=== PATIENT | female | born 1965 | race Hispanic/Latino ===

== ENCOUNTER 2023-12-02 18:15 | Emergency (ER) | payer OTHER ==
[~2023-12-02] VITALS: Ht 152.4 cm; Wt 77.1 kg
[2023-12-02 19:41] LABS: BASOPHILS % 0.1 % (0.0-1.0); HEMOGLOBIN 7.2 g/dL (12.0-16.0); LYMPHOCYTES # (AUTO) 0.5 (1.0-3.2); LYMPHOCYTES % 3.4 % (18.0-39.1); MEAN CORPUSCULAR HEMOGLOBIN 24.2 pg (28-32); MEAN CORPUSCULAR HGB CONC 33.2 g/dL (31-35); MEAN CORPUSCULAR VOLUME 73.1 fL (81-99); MONOCYTES # (AUTO) 0.8 (0.2-0.8); MONOCYTES % 5.4 % (4.4-11.3); NEUTROPHILS # (AUTO) 13.2 (2.1-6.9); NEUTROPHILS % 90.4 % (38.7-80.0); PLATELET COUNT 69 x10e3/uL (140-360); RED BLOOD COUNT 2.97 x10e6/uL (3.6-5.1); RED CELL DISTRIBUTION WIDTH 16.7 % (11.7-14.4); WHITE BLOOD COUNT 14.61 x10e3/uL (4.8-10.8)
[2023-12-02 19:46] LABS: HEMATOCRIT 21.7 % (34.2-44.1)
[2023-12-02 19:48] LABS: INR 2.19; PROTHROMBIN TIME 25.5 seconds (11.9-14.5)
[2023-12-02 19:49] LABS: PARTIAL THROMBOPLASTIN TIME 40.8 seconds (23.8-35.5)
[2023-12-02 19:57] LABS: ALBUMIN 2.3 g/dL (3.5-5.0); ALBUMIN/GLOBULIN RATIO 0.5 (0.8-2.0); ANION GAP 10.7 mmol/L (8-16); BILIRUBIN,TOTAL 5.6 mg/dL (0.2-1.2); CALCIUM 8.3 mg/dL (8.4-10.2); CREATININE, SERUM 0.9 mg/dL (0.57-1.11); POTASSIUM 4.7 mmol/L (3.5-5.1); TOTAL PROTEIN 7.1 g/dL (6.5-8.1)
[2023-12-02] MEDS ORDERED: DEXTROSE 50% SYRINGE 50 ML IV ONE (20:07)
[2023-12-02] MEDS: DEXTROSE 50% SYRINGE 50 ML IV STA ×2 (20:08→21:52)
[2023-12-02] MEDS ORDERED: IOPAMIDOL 370 MG/ML 100 ML INFUS..BTL INJ ONE (20:08)
[2023-12-02 20:35] LABS: BILIRUBIN,URINE NEGATIVE (NEGATIVE); CLARITY,URINE SL CLOUDY (CLEAR); COLOR,URINE YELLOW (YELLOW); GLUCOSE, URINE NEGATIVE (NEGATIVE); KETONES,URINE NEGATIVE (NEGATIVE); LEUKOCYTE ESTERASE ,URINE TRACE (NEGATIVE); NITRITE,URINE POSITIVE (NEGATIVE); PH,URINE 6 (5 - 7); PROTEIN,URINE DIPSTICK NEGATIVE (NEGATIVE); URINE UROBILINOGEN 1 mg/dL (0.2 - 1)
[2023-12-02 20:51] LABS: BACTERIA,URINE MANY /HPF; EPITHELIAL CELLS,URINE FEW /LPF; TRANSITIONAL EPI CELLS,URINE MODERATE; WBC,URINE (MAN) 0-5 /HPF (0-5)
[2023-12-02] MEDS: DEXTROSE 5%/0.45% SOD CHL 1,000 ML IV ONE (21:51)
[2023-12-03] MEDS: DEXTROSE 50% SYRINGE 50 ML IV STA ×2 (00:23→01:48)
[2023-12-03] MEDS: DEXTROSE 10% 1,000 ML IV ONE (01:19)
[2023-12-03 02:13] VITALS: PULSE 107; RESP 26; TEMP 98.4; O2SAT 99
== END 2023-12-03 02:35 | disposition other institution (70) ==
LOC: ER 18:18
DX: D64.9 Anemia, unspecified (principal); E87.1 Hypo-osmolality and hyponatremia; K82.9 Disease of gallbladder, unspecified; E11.649 Type 2 diabetes mellitus with hypoglycemia without coma; K74.60 Unspecified cirrhosis of liver; N20.0 Calculus of kidney; K57.90 Diverticulosis of intestine, part unspecified, without perforation or abscess without bleeding; D72.829 Elevated white blood cell count, unspecified
CPT/HCPCS: 36415; 74177; 80053; 81001; 82140; 82948; 83690; 85025; 85610; 85730; 87040; 99284; J2543; J7799 ×2; Q9967

== ENCOUNTER 2024-06-25 09:51 | Inpatient (IN) | payer OTHER ==
[~2024-06-25] VITALS: Ht 152.4 cm; Wt 77.1 kg
[2024-06-25 09:51] VITALS: TEMP 97.4
[2024-06-25 10:35] LABS: BASOPHILS % 0.6 % (0.0-1.0); EOSINOPHILS # (AUTO) 0.2 (0.0-0.4); EOSINOPHILS % 4.7 % (0.0-6.0); HEMATOCRIT 25.4 % (34.2-44.1); HEMOGLOBIN 8.4 g/dL (12.0-16.0); LYMPHOCYTES # (AUTO) 0.5 (1.0-3.2); LYMPHOCYTES % 9.7 % (18.0-39.1); MEAN CORPUSCULAR HEMOGLOBIN 23.5 pg (28-32); MEAN CORPUSCULAR HGB CONC 33.1 g/dL (31-35); MEAN CORPUSCULAR VOLUME 70.9 fL (81-99); MONOCYTES # (AUTO) 0.4 (0.2-0.8); MONOCYTES % 7.7 % (4.4-11.3); NEUTROPHILS # (AUTO) 3.6 (2.1-6.9); NEUTROPHILS % 77.1 % (38.7-80.0); PLATELET COUNT 77 x10e3/uL (140-360); RED BLOOD COUNT 3.58 x10e6/uL (3.6-5.1); RED CELL DISTRIBUTION WIDTH 18.4 % (11.7-14.4); WHITE BLOOD COUNT 4.65 x10e3/uL (4.8-10.8)
[2024-06-25 10:41] LABS: INR 1.94; PROTHROMBIN TIME 23.2 seconds (11.9-14.5)
[2024-06-25 10:42] LABS: PARTIAL THROMBOPLASTIN TIME 42.8 seconds (23.8-35.5)
[2024-06-25 10:43] LABS: ALBUMIN 2.2 g/dL (3.5-5.0); ALBUMIN/GLOBULIN RATIO 0.4 (0.8-2.0); ANION GAP 10.3 mmol/L (8-16); BILIRUBIN,TOTAL 3.6 mg/dL (0.2-1.2); CALCIUM 8.1 mg/dL (8.4-10.2); CREATININE, SERUM 0.82 mg/dL (0.57-1.11); MAGNESIUM 1.6 MG/DL (1.3-2.1); POTASSIUM 4.3 mmol/L (3.5-5.1); TOTAL PROTEIN 7.6 g/dL (6.5-8.1)
[2024-06-25 10:44] LABS: CORONAVIRUS COVID-19 AG NEGATIVE (NEGATIVE); INFLUENZA A AG NEGATIVE (NEGATIVE); INFLUENZA B AG NEGATIVE (NEGATIVE)
[2024-06-25 10:49] LABS: TROPONIN I 0.012 ng/mL (0-0.300)
[2024-06-25] MEDS: SODIUM CHLORIDE 0.9% 500ML 500 ML IV ONE (10:51)
[2024-06-25] MEDS ORDERED: IOPAMIDOL 370 MG/ML 100 ML INFUS..BTL INJ ONE (12:00)
[2024-06-25 13:00] VITALS: PULSE 117; RESP 20
[2024-06-25] MEDS ORDERED: ONDANSETRON HCL INJ 2MG/ML 2ML 2 MG/ML VIAL IV PRN (13:15)
[2024-06-25 13:36] LABS: BACTERIA,URINE MANY /HPF; BILIRUBIN,URINE NEGATIVE (NEGATIVE); CLARITY,URINE CLEAR (CLEAR); COLOR,URINE YELLOW (YELLOW); EPITHELIAL CELLS,URINE FEW /LPF; GLUCOSE, URINE NEGATIVE (NEGATIVE); KETONES,URINE NEGATIVE (NEGATIVE); LEUKOCYTE ESTERASE ,URINE TRACE (NEGATIVE); NITRITE,URINE NEGATIVE (NEGATIVE); PH,URINE 6 (5 - 7); PROTEIN,URINE DIPSTICK NEGATIVE (NEGATIVE); URINE UROBILINOGEN 0.2 mg/dL (0.2 - 1)
[2024-06-25 14:09] VITALS: PULSE 110; RESP 18; O2SAT 96
[2024-06-25 15:21] VITALS: BP 137/63; PULSE 127; RESP 19; TEMP 97.9; O2SAT 94
[2024-06-25 15:48] VITALS: BP 137/63; PULSE 127; RESP 19; TEMP 97.9; O2SAT 94
[2024-06-25] MEDS ORDERED: SOD SUL-POTASS177 ML PO (16:13)
[2024-06-25] MEDS ORDERED: FUROSEMIDE40 MG PO (16:13)
[2024-06-25] MEDS ORDERED: LACTULOSE10 GM/151 PO (16:13)
[2024-06-25] MEDS ORDERED: CIPROFLOXACIN500 MG PO (16:13)
[2024-06-25] MEDS ORDERED: SPIRONOLACTONE25 MG PO (16:13)
[2024-06-25] MEDS ORDERED: SPIRONOLACTONE50 MG PO (16:13)
[2024-06-25 17:51] LABS: BODY FLUID APPEARANCE CLOUDY; BODY FLUID COLOR RED; BODY FLUID TYPE PLEURAL
[2024-06-25 17:52] LABS: WBC,BODY FLUID 213 cells/uL
[2024-06-25 17:53] LABS: RBC,BODY FLUID 13000 cells/uL
[2024-06-25 20:00] VITALS: BP 103/52; PULSE 102; RESP 18; TEMP 97.9; O2SAT 98
[2024-06-25 20:08] LABS: BASOPHILS,BODY FLUID 0 %; EOSINOPHILS,BODY FLUID 0 %; LYMPHOCYTES,BODY FLUID 26 %; NEUTROPHILS,BODY FLUID 15 %
[2024-06-25 20:09] LABS: OTHER CELLS,BODY FLUID 23 %; TOTAL CELLS COUNTED (DIFF) 100
[2024-06-25 20:10] LABS: MONO/MACROPHG,BODY FLUID 36 %
[2024-06-26] VITALS (10 sets, daily range): BP systolic 100–117; BP diastolic 48–69; PULSE 90–102; RESP 18–20; TEMP 98–98.3; O2SAT 93–100
[2024-06-26 00:53] LABS: TROPONIN I 0.005 ng/mL (0-0.300)
[2024-06-26 06:58] LABS: CREATINE KINASE 104 IU/L (29-168)
[2024-06-26 07:00] LABS: ALBUMIN 1.9 g/dL (3.5-5.0); ALBUMIN/GLOBULIN RATIO 0.4 (0.8-2.0); ANION GAP 8.4 mmol/L (8-16); CALCIUM 7.8 mg/dL (8.4-10.2); CREATININE, SERUM 0.81 mg/dL (0.57-1.11); POTASSIUM 4.4 mmol/L (3.5-5.1); TOTAL PROTEIN 6.3 g/dL (6.5-8.1)
[2024-06-26 07:08] LABS: TROPONIN I < 0.001 ng/mL (0-0.300)
[2024-06-26 09:32] LABS: BASOPHILS % 0.3 % (0.0-1.0); EOSINOPHILS # (AUTO) 0.3 (0.0-0.4); EOSINOPHILS % 7.3 % (0.0-6.0); HEMATOCRIT 23.4 % (34.2-44.1); HEMOGLOBIN 7.8 g/dL (12.0-16.0); LYMPHOCYTES # (AUTO) 0.6 (1.0-3.2); LYMPHOCYTES % 15.1 % (18.0-39.1); MEAN CORPUSCULAR HEMOGLOBIN 23.4 pg (28-32); MEAN CORPUSCULAR HGB CONC 33.3 g/dL (31-35); MEAN CORPUSCULAR VOLUME 70.1 fL (81-99); MONOCYTES # (AUTO) 0.3 (0.2-0.8); MONOCYTES % 8.4 % (4.4-11.3); NEUTROPHILS # (AUTO) 2.5 (2.1-6.9); NEUTROPHILS % 68.6 % (38.7-80.0); RED BLOOD COUNT 3.34 x10e6/uL (3.6-5.1); RED CELL DISTRIBUTION WIDTH 18.8 % (11.7-14.4)
[2024-06-26 09:37] LABS: PLATELET COUNT 56 x10e3/uL (140-360)
[2024-06-26] MEDS: MAGNESIUM SULFATE 2GM/50ML 50 ML IV ONE (16:41)
[2024-06-26] MEDS: BENZONATATE 100 MG CAP PO PRN (21:47)
[2024-06-27 05:09] VITALS: BP 117/55; PULSE 105; RESP 18; TEMP 98.3; O2SAT 97
[2024-06-27 06:11] LABS: BASOPHILS % 0.5 % (0.0-1.0); EOSINOPHILS # (AUTO) 0.4 (0.0-0.4); EOSINOPHILS % 10.2 % (0.0-6.0); HEMOGLOBIN 7.6 g/dL (12.0-16.0); LYMPHOCYTES # (AUTO) 0.5 (1.0-3.2); LYMPHOCYTES % 11.8 % (18.0-39.1); MEAN CORPUSCULAR HEMOGLOBIN 24.1 pg (28-32); MEAN CORPUSCULAR HGB CONC 33.5 g/dL (31-35); MEAN CORPUSCULAR VOLUME 71.8 fL (81-99); MONOCYTES # (AUTO) 0.4 (0.2-0.8); MONOCYTES % 8.3 % (4.4-11.3); NEUTROPHILS # (AUTO) 2.9 (2.1-6.9); NEUTROPHILS % 68.7 % (38.7-80.0); PLATELET COUNT 60 x10e3/uL (140-360); RED BLOOD COUNT 3.16 x10e6/uL (3.6-5.1); RED CELL DISTRIBUTION WIDTH 18.4 % (11.7-14.4); WHITE BLOOD COUNT 4.22 x10e3/uL (4.8-10.8)
[2024-06-27 06:42] LABS: ANION GAP 9.3 mmol/L (8-16); CALCIUM 8.1 mg/dL (8.4-10.2); CREATININE, SERUM 0.77 mg/dL (0.57-1.11); PHOSPHORUS 3.1 MG/DL (2.3-4.7); POTASSIUM 4.3 mmol/L (3.5-5.1)
[2024-06-27 06:43] LABS: HEMATOCRIT 22.7 % (34.2-44.1)
[2024-06-27 10:47] VITALS: BP 116/59; PULSE 109; RESP 20; TEMP 98.2; O2SAT 95
[2024-06-27 11:16] VITALS: BP 116/59; PULSE 109; RESP 20; TEMP 98.2; O2SAT 95
[2024-06-27] MEDS ORDERED: BENZONATATE100 MG PO (12:04)
[2024-06-27] MEDS ORDERED: ONDANSETRON ODT4 MG PO (12:04)
[2024-06-27 12:34] VITALS: PULSE 97; RESP 18; O2SAT 96
[2024-06-27 13:05] VITALS: BP 113/59; PULSE 109; RESP 18; TEMP 98.1; O2SAT 97
[2024-06-29 07:32] LABS: TOTAL PROTEIN,BODY FLUID 0.8 g/dL
== END 2024-06-27 13:18 | disposition home or self-care (01) | DRG 432 ==
LOC: ER 10:00 → ERHOLD 13:10 → MED/SURG2 14:20
PROVIDERS: ADMIT Internal Medicine; ATTEND Internal Medicine
PROC: 0W993ZZ Drainage of Right Pleural Cavity, Percutaneous Approach (ICD-10-PCS; principal; 2024-06-25)
DX: K74.60 Unspecified cirrhosis of liver (principal); J96.00 Acute respiratory failure, unspecified whether with hypoxia or hypercapnia; J91.8 Pleural effusion in other conditions classified elsewhere; J98.11 Atelectasis; K76.6 Portal hypertension; D61.818 Other pancytopenia; D68.9 Coagulation defect, unspecified; D63.8 Anemia in other chronic diseases classified elsewhere; E11.65 Type 2 diabetes mellitus with hyperglycemia; E83.42 Hypomagnesemia; Z11.52 Encounter for screening for COVID-19; Z85.42 Personal history of malignant neoplasm of other parts of uterus; Z90.710 Acquired absence of both cervix and uterus
CPT/HCPCS: 32555; 36415; 71045; 71260; 74177; 74470; 80048; 80053; 81001; 82550; 82948; 83605; 83615; 83690; 83735; 83880; 84100; 84157; 84478; 84484; 85025; 85610; 85730; 87040; 87070; 87086; 87205; 89051; 93005; 94799; 99284; C1729; J0696; J2470; J3475; J7040; J7050; Q9967